=== PATIENT | male | born 1955 | race Caucasian/White ===

== ENCOUNTER → 2020-11-06 | Outpatient (CLI) | payer MEDICARE, OTHER | LOC: KOH-I 14:10 | DX: R41.3 Other amnesia (principal) | CPT/HCPCS: 70551 ==

== ENCOUNTER → 2021-01-01 | Outpatient (CLI) | payer OTHER ==
[2021-01-02 11:14] LABS: HBSAG SCREEN Negative (Negative); HEP A AB, IGM Negative (Negative); HEP B CORE AB, IGM Negative (Negative); HEP C VIRUS AB <0.1 (0.0-0.9)
[2021-01-02 16:11] LABS: MITOCHONDRIAL (M2) ANTIBODY <20.0 Units (0.0-20.0)
== END ==
LOC: US 08:54
PROVIDERS: Internal Medicine Gastroenterology
DX: R74.8 Abnormal levels of other serum enzymes (principal); K76.0 Fatty (change of) liver, not elsewhere classified; K80.20 Calculus of gallbladder without cholecystitis without obstruction
CPT/HCPCS: 36415; 76705; 80074; 80076; 82728; 83540; 83550; 86038

== ENCOUNTER → 2021-05-15 | Outpatient (CLI) | payer OTHER | LOC: KOH-I 15:24 | DX: F17.210 Nicotine dependence, cigarettes, uncomplicated (principal) | CPT/HCPCS: 71271 ==

== ENCOUNTER 2022-01-14 19:13 | Emergency (ER) | payer OTHER ==
[2022-01-14 20:26] LABS: RED BLOOD COUNT 5.34 M/UL (4.20-5.50); WHITE BLOOD COUNT 10.4 K/UL (4.5-11.0)
[2022-01-14 20:39] LABS: BUN/CREATININE RATIO 14 (0-10)
== END 2022-01-14 23:48 | disposition left against medical advice (07) ==
LOC: ER1 19:13
PROVIDERS: Emergency Medicine
DX: R51.9 Headache, unspecified (principal); F17.210 Nicotine dependence, cigarettes, uncomplicated
CPT/HCPCS: 70450; 80053; 85025; 85652; 86140; 99281

== ENCOUNTER → 2022-02-01 | Outpatient (CLI) | payer OTHER | LOC: US 09:45 | DX: R17 Unspecified jaundice (principal) | CPT/HCPCS: 76705 ==